=== PATIENT | female | born 2005 | race Two or more races ===

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

== ENCOUNTER 2024-03-25 22:42 | Emergency (ER) | payer SELFPAY ==
[2024-03-25 22:43] VITALS: BMI 20.9
[2024-03-25 22:57] VITALS: BP 106/68; PULSE 84; RESP 18; TEMP 36.6; O2SAT 97
--- NOTE | 2024-03-25 23:14 | XR_ITS ---
Examination: PA lateral chest 2 views Technique: Upright PA lateral chest 2 views Exam date and time: March 25, 2024 1128 hrs. Comparison: April 16 2022 Indications: Coughing fever several weeks. Findings: Normal heart size No pneumonia or pulmonary edema. The osseous structures are intact Impression: No pneumonia identified
--- NOTE | 2024-03-25 23:23 | EDNOTE_ITS ---
Upper Respiratory Inf. RME/HPI General Chief Complaint: Flu Like Symptoms Stated Complaint: COLD SYMPTOMS X2 WEEKS, CHEST HURTS Time Seen by Provider: 03/25/24 23:25 Source: patient Arrival date/time: 03/25/24 22:42 19-year-old female with no known medical history presents to the emergency room with a chief complaint of coughing, chills, shortness of breath x 2 weeks Mode of arrival: ambulatory Limitations: no limitations Related Data Previous Rx's ?Medication ?Instructions ?Recorded cetirizine 10 mg capsule (Zyrtec) 10 mg PO QDAY PRN allergy symptoms 10/22/18 #30 caps sodium chloride 0.65 % nasal spray 2 spray intranasal QID PRN nasal 10/22/18 aerosol (Saline Nasal) congestion #60 mL albuterol sulfate 90 mcg/actuation 2 puff inhalation QID PRN 12/07/20 aerosol inhaler (Proventil HFA) shortness of breath or wheezing #8.5 grams cetirizine 10 mg capsule (Zyrtec) 10 mg PO QDAY #30 caps 12/07/20 hydroxyzine HCl 25 mg tablet 25 mg PO BID PRN anxiety #10 tabs 04/16/22 Allergies Allergy/AdvReac Type Severity Reaction Status Date / Time No Known Allergies Allergy Verified 12/07/20 20:48 Review of Systems Review of Systems Systems Reviewed: All systems reviewed, normal except as documented Constitutional Constitutional: Reports system reviewed and no additional complaints, except as documented, Denies fatigue, Denies fever(s), Reports headache(s) and Reports weakness Eyes Eyes: Reports system reviewed and no additional complaints, except as documented, Denies blurry vision and Denies change in vision ENT Ears, Nose, Mouth, and Throat: Reports system reviewed and no additional complaints, except as documented, Denies otalgia, Reports headache(s), Reports nasal congestion, Denies throat swelling and Denies vertigo Cardiovascular Cardiovascular: Reports system reviewed and no additional complaints, except as documented, Denies chest pain, Denies dyspnea and Denies dyspnea on exertion Respiratory Respiratory: Reports system reviewed and no additional complaints, except as do cumented, Denies chest congestion, Reports cough, Denies dyspnea, Denies dyspnea on exertion and Denies wheezing Gastrointestinal Gastrointestinal: Reports system reviewed and no additional complaints, except as documented, Denies abdominal pain, Denies cramping, Denies nausea and Denies vomiting Genitourinary Genitourinary: Reports system reviewed and no additional complaints, except as documented Musculoskeletal Musculoskeletal: Reports system reviewed and no additional complaints, except as documented and Denies back pain Integumentary/Breasts Skin/Breast: Reports system reviewed and no additional complaints, except as documented and Denies wounds Neurologic Neurologic: Reports system reviewed and no additional complaints, except as documented, Denies confusion, Reports headache(s), Denies lack of coordination, Denies vertigo and Reports weakness Psychiatric Psychiatric: Reports system reviewed and no additional complaints, except as documented, Denies anxiety, Denies confusion, Denies depression, Denies paranoia, Denies suicidal ideation and Denies tactile hallucinations Endocrine Endocrine: Reports system reviewed and no additional complaints, except as documented and Denies fatigue Hematologic/Lymphatic Hematologic/Lymphatic: Reports system reviewed and no additional complaints, except as documented and Denies lymphadenopathy Allergic/Immunologic Allergic/Immunologic: Reports system reviewed and no additional complaints, except as documented, Denies throat swelling, Denies urticaria and Denies wheezing Past Medical History Social History SMOKING STATUS: Never smoker ED Exam General Limitations: Present no limitations General appearance: Present alert and in no apparent distress Head Head exam: Present atraumatic Eye Eye exam: Present normal appearance, PERRL and EOMI ENT ENT exam: Present normal exam, normal oropharynx and mucous membranes moist Neck Neck exam: Present normal inspection, full ROM and trachea midline Chest Chest inspection: Present normal inspection and symmetric chest wall rise Respiratory Respiratory exam: Present normal lung sounds bilaterally; Absent respiratory distress, wheezes, stridor, accessory muscle use or prolonged expiratory phase Cardiovascular Cardiovascular exam: Present regular rate, normal rhythm and normal heart sounds Abdominal Exam Abdominal exam: Present soft and normal bowel sounds Extremities Exam Extremities exam: Present normal inspection and full ROM Back Exam Back exam: Present normal inspection and full ROM Neurological Exam Neurological exam: Present alert, oriented X3 and CN II-XII intact Psychiatric Psychiatric exam: Present normal affect and normal mood Skin Skin exam: Present warm, dry, intact and normal color Course Quality Measures none Orders Category Date Time Status Bedside COVID-19 Antigen Test NOW Care 03/25/24 23:14 Completed Bedside Influenza A&B Antigen Test NOW Care 03/25/24 23:14 Completed XR chest 2V Stat Exams 03/25/24 23:14 Completed Vital Signs Vital signs: Vital Signs Temperature 97.9 F 01/17/25 22:57 Pulse Rate 84 03/25/24 22:57 Respiratory Rate 18 03/25/24 22:57 Blood Pressure 106/68 03/25/24 22:57 Pulse Oximetry (%) 97 03/25/24 22:57 Oxygen Delivery Method Room Air 03/25/24 22:57 O2 saturation 97% within normal limits Upper Respiratory Infection MDM Narrative MDM Narrative:: 19-year-old female with no known medical history presents to the emergency room with a chief complaint of coughing, chills, shortness of breath x 2 weeks clinically the patient appears nontoxic and in no apparent distress. Physical examination shows clear bilateral lung sounds with no wheezing stridor or any respiratory distress. COVID-19, influenza A test were negative. Chest x-ray was negative for any pneumonic infiltrates. Patient was discharged and educated to follow-up with primary care provider and return to the emergency room for any evidence of worsening signs or symptoms Patient data External records reviewed:: [facility] previous records Clinical information provided by:: patient Social determinants that could affect healthcare access:: none Patient has the following chronic illnesses:: No chronic illness How is presenting disease/condition affected by chronic disease/condition?: no chronic disease Evaluation data The following diagnostics were reviewed and interpreted by me:: lab results and radiology exam(s) Lab and/or radiology exams considered but not ordered:: Labs and radiology exams considered and ordered Interpretation Summary: N/A Medications / Prescriptions Medications or Prescriptions considered but not ordered:: Medication not given Medication administrations:: Medication not given Consultations Consultation(s) initiated? (list below): No Diagnosis Upper Respiratory Differential Diagnosis: upper respiratory infection, sinusitis, viral infection, bronchitis, influenza and pharyngitis Most likely diagnosis given after review of the tests above:: Upper respiratory infection Admission Indicated Admission indicated?: not indicated Admission Request Was there a request for admission?: No Disposition Plan Disposition Plan: Discharge Discharge Attestation Discharge Attestation: The patient and all family members were given an opportunity to ask questions and understood the discharge instructions. Discharge instructions specifically effects, indications for sooner follow up or return to the emergency department, and the expected course of current diagnosis. Patient condition: Stable Discharge Plan Plan Patient Disposition: HOME (Self Care) Disposition Comment: Stable Prescriptions/Referrals Prescriptions/Med Rec: No Action Zyrtec 10 mg capsule 10 mg PO QDAY PRN (Reason: allergy symptoms) Qty: 30 0RF sodium chloride [Saline Nasal] 0.65 % aerosol,spray 2 spray INTRANASAL QID PRN (Reason: nasal congestion) Qty: 60 0RF albuterol sulfate [Proventil HFA] 90 mcg/actuation HFA aerosol inhaler 2 puff inhalation QID PRN (Reason: shortness of breath or wheezing) Qty: 8.5 0RF Zyrtec 10 mg capsule 10 mg PO QDAY Qty: 30 0RF hydroxyzine HCl 25 mg tablet 25 mg PO BID PRN (Reason: anxiety) Qty: 10 0RF Rx Instructions: take 1/2 tab twice a day as needed for anxiety Referrals: Angelina Garibay PA-C [Primary Care Provider] - In 1 week Problem List Clinical Impression: Upper respiratory infection Patient/Caregiver Discharge Instructions Education Materials: ED URI, Viral, No Abx (Adult) Additional Instructions: Please follow-up with your primary care provider in the next 24 to 48 hours. X-ray was completed and was negative for any acute findings. COVID-19 influenza was negative. For any evidence of worsening signs or symptoms please return to the emergency room immediately Print Language: Mohawk Stand Alone Forms: Shawna Award Info., Work/School Release, Patient Portal Info Letter OLGA/KASSANDRA Supervising Physician DONTA Supervising Physician: Dr Langley
== END 2024-03-26 00:51 | disposition home or self-care (01) ==
PROVIDERS: Emergency Provider Emergency Medicine; PCP Physician Assistant
DX: J06.9 Acute upper respiratory infection, unspecified (principal)
CPT/HCPCS: 71046; 87400; 87811; 99283

== ENCOUNTER 2024-12-18 11:27 | Emergency (ER) | payer MEDICAID, SELFPAY ==
[2024-12-18 12:02] VITALS: BP 129/88; PULSE 101; RESP 19; TEMP 36.4; O2SAT 96; BMI 18.3
--- NOTE | 2024-12-18 12:11 | EKG_ITS ---
[facility] Test Date: 2024-12-18 Pat Name: DEONDRE MOCTEZUMA Department: Room: - Gender: Female Manager Management: : 2005 Requested By: Jovanny Mujica Order Number: [id number] Reading MD: Jovanny Mujica Measurements Intervals [place] Rate: 92 P: 75 DC: 166 QRS: 81 QRSD: 82 T: 5 QT: 313 QTc: 388 Interpretive Statements SINUS RHYTHM NONSPECIFIC T-WAVE ABNORMALITY No previous ECG available for comparison /store/S0/[id number]/[id number].pdf
--- NOTE | 2024-12-18 12:11 | XR_ITS ---
Examination: CT abdomen with intravenous contrast CT pelvis with intravenous contrast 2-D coronal reconstructions 2-D sagittal reconstructions Date and time of exam: December 18, 2024, 1341 hours INDICATIONS: Epigastric pain right upper abdominal pain beginning 2 weeks ago.. CTDI: vol (mGy) 4.54 DLP: (mGycm) 203 Technique: Multiple axial sections of the abdomen and pelvis have been obtained. 64 slice high-resolution scanner used. 3 mm axial sections have been obtained, post intravenous injection 60 cc [id number] 2-D sagittal, coronal reconstructions obtained. Low dose protocols were performed. One or more of the following dose reduction techniques were used; automated exposure control, adjustment of the mA and/or KV according to patient size, use of iterative reconstruction technique. Findings: Gastric mucosa is thickened No visualized liver or splenic lesion No gallstones No common bile duct stones No pancreatic mass. No renal or ureteral calculi, no hydronephrosis No pericecal inflammatory change No pelvic mass No free fluid in the pelvis Urinary bladder intact IMPRESSION: Gastritis pattern No renal or ureteral calculi, no hydronephrosis No CT findings of appendicitis or bowel obstruction Consider hepatobiliary sonography follow-up
[2024-12-18 12:40] LABS: HCG,Qualitative Serum Negative
--- NOTE | 2024-12-18 12:40 | PD.EDABDPN ---
ED Abdominal Pain RME/HPI General Chief Complaint: Abdominal Pain Stated complaint: ABD PAIN 11/16 X 2 WKS Time seen by provider: 12/18/24 12:01 Arrival date/time: 12/18/24 11:27 RME / HPI RME / HPI narrative: 19-year-old female presents to the ER complaining of continued nausea vomiting which has been ongoing for the past 2 weeks with worsening periumbilical pain and low-grade fever. Denies diarrhea, urinary symptoms, abnormal vaginal discharge. Patient is currently menstruating. Patient states she attempted to use Zofran at home without significant improvement then she took her Reglan and Benadryl which did seem to improve her symptoms mildly.Patient does endorse cannabis use however she has never had to be in the hospital for this. Related Data Previous Rx's ?Medication ?Instructions ?Recorded cetirizine 10 mg capsule (Zyrtec) 10 mg PO QDAY PRN allergy symptoms 10/22/18 #30 caps sodium chloride 0.65 % nasal spray 2 spray intranasal QID PRN nasal 10/22/18 aerosol (Saline Nasal) congestion #60 mL albuterol sulfate 90 mcg/actuation 2 puff inhalation QID PRN 12/07/20 aerosol inhaler (Proventil HFA) shortness of breath or wheezing #8.5 grams cetirizine 10 mg capsule (Zyrtec) 10 mg PO QDAY #30 caps 12/07/20 hydroxyzine HCl 25 mg tablet 25 mg PO BID PRN anxiety #10 tabs 04/16/22 metoclopramide HCl 10 mg tablet 10 mg PO Q6H PRN nausea and 12/18/24 (Reglan) vomiting #10 tabs pantoprazole 40 mg tablet,delayed 40 mg PO QDAY #30 tabs 12/18/24 release Allergies Allergy/AdvReac Type Severity Reaction Status Date / Time No Known Allergies Allergy Verified 12/18/24 11:29 Course Course Course Narrative: At the time of reassessment, the patient remains alert and oriented ?3 with GCS 15. Serial abdominal exams benign without peritonitis vitals are normal, pain is controlled, and the patient is tolerating oral intake without nausea or vomiting. The patient is agreeable to discharge and verbalizes understanding of the diagnosis, studies, treatment plan, medications (including side effects/precautions), and strict ER return precautions as discussed in the ED. All concerns were addressed, and the patient is comfortable with the plan. Quality Measures none Orders Category Date Time Status CT Screening NOW Care 12/18/24 12:12 Active EKG (ED ONLY) *Do not use* NOW Care 12/18/24 12:[address] abdomen pelvis w con Stat Exams 12/18/24 12:11 Completed EKG (ED Only) Stat Exams 12/18/24 12:11 Draft CBC Stat Lab 12/18/24 12:18 Completed Comprehensive Metabolic Panel Stat Lab 12/18/24 12:18 Completed HCG,Qualitative Serum Stat Lab 12/18/24 12:18 Completed Lipase Stat Lab 12/18/24 12:18 Completed Urinalysis, C/S if Indicated Stat Lab 12/18/24 15:04 Completed DiphenhydrAMINE INJ [Benadryl Inj] Med 12/18/24 12:14 Discontinued 25 mg IVP X1 ONE Lidocaine 2% Viscous [Xylocaine 2% Viscous] Med 12/18/24 12:14 Discontinued 15 ml PO X1 ONE Metoclopramide Inj [Reglan Inj] Med 12/18/24 12:14 Discontinued 10 mg IVP X1 ONE Sodium Chloride 0.9% 1000 ml [Ns] 1,000 ml Med 12/18/24 12:14 Discontinued IV 1,000 mls/hr mg Hyd/Al Hyd/Luisana Susp [Maalox Susp] Med 12/18/24 12:14 Discontinued 30 ml PO X1 ONE Vital Signs Vital signs: Vital Signs Temperature 97.5 F 12/18/24 12:02 Pulse Rate 101 H 12/18/24 12:02 Respiratory Rate 19 12/18/24 12:02 Blood Pressure 129/88 H 12/18/24 12:02 Pulse Oximetry (%) 96 12/18/24 12:02 Oxygen Delivery Method Room Air 12/18/24 12:02 Abdominal Pain MDM MDM Narrative MDM Narrative:: MDM: The patient presents with abdominal pain without definite explanation found on evaluation today. However, there are no signs of peritonitis or other life-threatening or serious etiology. I considered admission; however, given negative work up and imaging, admission is not indicated. The patient appears stable for discharge and has been instructed to return for re-evaluation immediately if the symptoms worsen or change in any way. If the symptoms are not resolved in 24-48 hours, the patient is asked to get rechecked by their PMD or return to the ED. Patient data External records reviewed:: [facility] previous records Clinical information provided by:: patient Social determinants that could affect healthcare access:: none Patient has the following chronic illnesses:: None How is presenting disease/condition affected by chronic disease/condition?: no chronic disease Evaluation data The following diagnostics were reviewed and interpreted by me:: lab results, radiology exam(s) and EKG tracing(s) Lab and/or radiology exams considered but not ordered:: Labs and radiology considered, but not ordered as they were not clinically indicated at this time. Interpretation Summary: EKG without acute ischemia, high grade AV block, arrhythmia CBC without severe leukocytosis, anemia, or thrombocytopenia CMP without severe hyperbilirubinemia, transaminitis, acute renal failure or severe electrolyte derangement Lipase without severe elevation Mild hyperglycemia noted at 123 Medications / Prescriptions Medications or Prescriptions considered but not ordered:: I considered prescription management (both outpatient prescriptions AND drug treatment in the ER) and decided that this was necessary and was prescribed as charted. Medication administrations:: Medication Administration History Discontinued Medications Al Hydrox/Mg Hydrox/Simethicone (Mg Hyd/Al Hyd/Luisana (Maalox Reg) Susp 30 Ml Udc) 30 ml PO X1 ONE Stop: 12/18/24 12:15 Last Admin: 12/18/24 12:46 Dose: 30 ml Documented By: Diphenhydramine HCl (Diphenhydramine Inj 50 Mg/Ml Vial) 25 mg IVP X1 ONE Stop: 12/18/24 12:15 Last Admin: 12/18/24 13:01 Dose: Not Given Documented By: Non-Admin Reason: Patient Refused Sodium Chloride (Ns) 1,000 mls @ 1,000 mls/hr IV .Q1H ONE Stop: 12/18/24 13:13 Last Infusion: 12/18/24 15:02 Dose: Infused Documented By: Admin: 12/18/24 12:55 Dose: 1,000 mls/hr Documented By: Lidocaine HCl (Lidocaine Viscous 2% 15 Ml Udc) 15 ml PO X1 ONE Stop: 12/18/24 12:15 Last Admin: 12/18/24 12:46 Dose: 15 ml Documented By: Metoclopramide HCl (Metoclopramide Inj 5 Mg/Ml Vial 2 Ml) 10 mg IVP X1 ONE; Protocol Stop: 12/18/24 12:15 Last Admin: 12/18/24 13:01 Dose: Not Given Documented By: GM Non-Admin Reason: Patient Refused As noted Consultations Consultation(s) initiated? (list below): No Diagnosis Differential diagnosis abdominal pain: abdominal pain and acute appendicitis Most likely diagnosis given after review of the tests above:: Diagnosis is abdominal pain undifferentiated however may be related to gastritis Admission Indicated Admission indicated?: not indicated Admission Request Was there a request for admission?: No Disposition Plan Disposition Plan: Discharge Discharge Attestation Discharge Attestation: The patient and all family members were given an opportunity to ask questions and understood the discharge instructions. Discharge instructions specifically effects, indications for sooner follow up or return to the emergency department, and the expected course of current diagnosis. Patient condition: Stable Discharge Plan Plan Patient Disposition: HOME (Self Care) Patient condition on transfer: Stable Prescriptions/Referrals Prescriptions/Med Rec: New metoclopramide HCl [Reglan] 10 mg tablet 10 mg PO Q6H PRN (Reason: nausea and vomiting) Qty: 10 0RF pantoprazole 40 mg tablet,delayed release (DR/EC) 40 mg PO QDAY Qty: 30 0RF Rx Instructions: QD No Action Zyrtec 10 mg capsule 10 mg PO QDAY PRN (Reason: allergy symptoms) Qty: 30 0RF sodium chloride [Saline Nasal] 0.65 % aerosol,spray 2 spray INTRANASAL QID PRN (Reason: nasal congestion) Qty: 60 0RF albuterol sulfate [Proventil HFA] 90 mcg/actuation HFA aerosol inhaler 2 puff inhalation QID PRN (Reason: shortness of breath or wheezing) Qty: 8.5 0RF Zyrtec 10 mg capsule 10 mg PO QDAY Qty: 30 0RF hydroxyzine HCl 25 mg tablet 25 mg PO BID PRN (Reason: anxiety) Qty: 10 0RF Rx Instructions: take 1/2 tab twice a day as needed for anxiety Referrals: Henry Hoang MD [Primary Care Provider, Family Practice] - In 1 week Problem List Clinical Impression: Abdominal pain Patient/Caregiver Discharge Instructions Education Materials: Abdominal Pain Additional Instructions: Follow up with your primary medical doctor and a GI doctor within 24 hours. Return to the Emergency Room immediately for any new, worsening, continuing symptoms or any concerns at all. Return to the Emergency Room within 24 hours if you are unable to follow up with your primary medical doctor and GI doctor within 24 hours. Print Language: Peruvian Stand Alone Forms: Shawna Award Info., Patient Portal Info Letter
[2024-12-18] MEDS: LIDOCAINE VISCOUS 2% 15 ML UDC PO (12:46)
[2024-12-18] MEDS: MG HYD/AL HYD/SIME (Maalox Reg) SUSP 30 ML UDC PO (12:46)
[2024-12-18 12:50] LABS: Basophils # (Auto) 0.1 Thou/mm3 (0.0-0.2); Basophils % (Auto) 1 % (0-2.5); Eosinophils # (Auto) 0.0 Thou/mm3 (0.0-0.5); Eosinophils % (Auto) 0 % (0-10); Hematocrit 43.5 % (36.0-46.0); Hemoglobin 15.3 g/dL (12.0-16.0); Immature Granulocytes Auto 0.02 Thou/mm3 (0.00-0.00); Lymphocytes # (Auto) 1.4 Thou/mm3 (1.0-4.8); Lymphocytes % (Auto) 17 % (10-50); Mean Corpuscular HGB Conc 35.2 g/dl (31.0-37.0); Mean Corpuscular Hemoglobin 31.4 pg (25.0-35.0); Mean Corpuscular Volume 89 fL (80-100); Monocytes # (Auto) 0.7 Thou/mm3 (0.0-0.8); Monocytes % (Auto) 9 % (0-12); Neutrophils # (Auto) 6.1 Thou/mm3 (1.8-7.7); Neutrophils % (Auto) 73 % (37-80); Nucleated Red Blood Cell # 0.00 Thou/mm3 (0.00-0.00); Nucleated Red Blood Cell % 0 /100 WBC (0); Platelet Count 296 Thou/mm3 (140-440); RDW Standard Deviation 40.0 fL (36.4-46.3); Red Blood Count 4.88 Miln/mm3 (4.00-5.20); White Blood Count 8.4 Thou/mm3 (3.6-11.0)
[2024-12-18 12:53] LABS: Albumin, Serum 4.9 gm/dL (3.5-5.0); Albumin/Globulin Ratio 1.8 (1.2-2.2); Alkaline Phosphatase 67 U/L (46-116); Anion Gap 13 (7-16); Aspartate Amino Transferase 22 U/L (0-34); BUN/Creatinine Ratio 8 Ratio (12-20); Bilirubin,Total 0.6 mg/dL (0.3-1.2); Blood Urea Nitrogen 6 mg/dL (9-23); Calcium 9.9 mg/dL (8.3-10.6); Calcium (Corrected) 9.9 mg/dL (8.5-10.1); Carbon Dioxide 22.4 mMol/L (20.0-31.0); Chloride 105 mMol/L (98-107); Creatinine (Component) 0.8 mg/dL (0.6-1.3); Estimated Creatinine Clearance 77.5 mL/min (>60); Globulin 2.7 gm/dL (2.3-3.5); Glucose 123 mg/dL (74-106); Lipase 34 U/L (12-53); Osmolality,Calculated 278 (275-295); Potassium 3.8 mMol/L (3.4-5.1); Sodium 140 mMol/L (136-145); Total Protein 7.6 gm/dL (5.7-8.2); eGFR > 60 See Note
[2024-12-18] MEDS: SODIUM CHLORIDE 0.9% 1000 ML 1,000 ML IV (12:55)
[2024-12-18 12:57] LABS: Alanine Aminotransferase 8 U/L (10-49)
[2024-12-18 13:00] VITALS: BP 130/87; PULSE 85; RESP 16; TEMP 36.9; O2SAT 98
[2024-12-18 15:10] LABS: Collection Type, Urine Clean Catch
[2024-12-18 15:35] LABS: Bilirubin,Urine Negative (Negative); Blood,Urine 1+ (Negative); Clarity,Urine Clear (Clear/Hazy); Color,Urine Lt-Yellow (Lt Yel-Yel); Culture Indicated,Urine Not Indicated; Glucose, Urine Negative (Negative); Ketones,Urine Negative (Negative); Leukocyte Esterase,Urine Negative (Negative); Nitrite,Urine Negative (Negative); PH,Urine 6.5 (5.0-7.0); Protein,Urine Negative (Neg - Trace); RBC,Urine 2 /hpf (0-3); Specific Gravity,Urine 1.044 (1.001-1.035); Squamous Epithelial Cell,Urine 4 /hpf (0-5); Urobilinogen,Urine Negative mg/dL (0.0-1.0); WBC,Urine 1 /hpf (0-5)
[2024-12-18 15:43] VITALS: BP 128/87; PULSE 82; RESP 16; TEMP 36.9; O2SAT 100
== END 2024-12-18 15:47 | disposition home or self-care (01) ==
PROVIDERS: Physician Assistant; Emergency Provider Family Medicine; PCP Family Medicine
DX: R10.9 Unspecified abdominal pain (principal)
CPT/HCPCS: 36415; 74177; 80053; 81001; 83690; 84703; 85025; 93005; 96360; 96361; 99283; A4649; J3490; J7030; Q9967; A9270